=== PATIENT | male | born 1965 | race Hispanic/Latino ===

== ENCOUNTER 2017-10-14 19:43 | Inpatient (IN) | payer BC ==
--- NOTE | 2017-10-14 20:18 | ED PDOC ---
Arrival/HPI - General Chief Complaint: Cough, Cold, Congestion - History of Present Illness Narrative History of Present Illness (Text): 10/14/17 20:14 Pt is a 52 yo M with PMH of hypothyroidism and hyperlipidemia presents to Emergency department due to 4 week history of non-productive cough and congestion. Pt was initially seen by Dr. Lisa 3-4 weeks ago and was diagnosed with bronchitis. Patient was prescribed cough medications only at that time. Symptoms did not resolve. He then went to his regular PMD, Dr. Chavarria, about 2 weeks ago. Patient had been given levaquin, medrol dose pack, and supportive care. However, patient symptoms still did not resolve. So he was instructed by Dr. Chavarria to go to Emergency department to be admitted. Pt currently complains of cough, rib pain that subsequently developed from cough, nasal congestion, and wheezing with deep inspiration. Pt denied chest pain, nausea, vomiting, diarrhea, abdominal pain, fever, chills, headache, or dizziness. PMD: Aura Past Medical History - Cardiac Hx Cardiac Disorders: Yes - Pulmonary Hx Respiratory Disorders: No - Neurological Hx Neurological Disorder: No - HEENT Hx HEENT Disorder: No - Renal Hx Renal Disorder: No - Endocrine/Metabolic Hx Endocrine Disorders: Yes Hx Hypothyroidism: Yes - Hematological/Oncological Hx Blood Disorders: No - Integumentary Hx Dermatological Disorder: No - Musculoskeletal/Rheumatological Hx Musculoskeletal Disorders: Yes Hx Back Pain: Yes - Gastrointestinal Hx Gastrointestinal Disorders: No - Genitourinary/Gynecological Hx Genitourinary Disorders: No - Psychiatric Hx Psychophysiologic Disorder: No Hx Substance Use: No - Surgical History Hx Orthopedic Surgery: Yes (BACK, R FOOT) Other/Comment: NASAL R/T SINUS - Anesthesia Hx Anesthesia: Yes Family/Social History Family/Social History: No Known Family HX Smoking Status: Former Smoker Hx Alcohol Use: No Hx Substance Use: No Allergies/Home Meds Allergies/Adverse Reactions: Allergies No Known Allergies Allergy (Verified 10/14/17 19:57) Home Medications: Home Meds Medication Instructions Recorded Confirmed Unobtainable 10/14/17 10/14/17 Review of Systems - Review of Systems Constitutional: Normal Eyes: Normal ENT: Rhinorrhea, Sinus Congestion. absent: Sore Throat Respiratory: SOB, Cough (dry) Cardiovascular: Normal Gastrointestinal: Normal Genitourinary Male: Normal Musculoskeletal: Normal Skin: Normal Neurological: Normal Endocrine: Normal Hemo/Lymphatic: Normal Psychiatric: Normal Physical Exam Vital Signs Temp Pulse Resp BP Pulse Ox 10/14/17 21:53 98.0 F 77 19 150/92 H 98 10/14/17 19:58 98.2 F 71 16 157/96 H 95 Temperature: Afebrile Blood Pressure: Normal Pulse: Regular Respiratory Rate: Normal Appearance: Positive for: Well-Appearing Pain Distress: None Mental Status: Positive for: Alert and Oriented X 3 - Systems Exam Head: Present: Atraumatic, Normocephalic Extroacular Muscles: Present: EOMI Mouth: Present: Moist Mucous Membranes Neck: Present: Normal Range of Motion Respiratory/Chest: Present: Rhonchi (b/l bases). No: Respiratory Distress, Accessory Muscle Use, Wheezes, Rales Cardiovascular: Present: Regular Rate and Rhythm, Normal S1, S2. No: Murmurs, Rub, Gallop Abdomen: No: Tenderness, Distention, Peritoneal Signs, Rebound, Guarding Upper Extremity: Present: Normal Inspection Lower Extremity: Present: Normal Inspection Neurological: Present: GCS=15 Skin: Present: Warm, Dry, Normal Color Psychiatric: Present: Alert, Oriented x 3 Medical Decision Making ED Course and Treatment: 10/14/17 20:20 Assessment: 52 yo M with PMH of hypothyroidism and hyperlipidemia presents to emergency department for 4 week history of bronchitis. Plan: - CBC - CMP, Mg - BNP - Cardiac enzymes - Coags - EKG - Chest X-ray - Urinalysis - Flu swab - Duoneb - Solumedrol 10/14/17 21:04 EKG showed NSR, moderate voltage criteria for LVH. 10/14/17 22:00 Chest X-ray as interpreted by myself shows no active disease. Labs unremarkable. Spoke to Dr. Chavarria, she accepts patient under her service. Dr. Chavarria requests CT of chest. - Lab Interpretations Lab Results: 10/14/17 20:58 10/14/17 20:58 Lab Results 10/14/17 20:58: Influenza Typ A,B (EIA) Negative for flu a/b 10/14/17 20:58: Sodium 139, Potassium 3.8, Chloride 103, Carbon Dioxide 26, Anion Gap 14, BUN 21, Creatinine 0.7 L, Est GFR ( Amer) > 60, Est GFR ( Non-Af Amer) > 60, Random Glucose 113 H, Calcium 9.3, Magnesium 2.0, Total Bilirubin 0.7, AST 45, ALT 56, Alkaline Phosphatase 89, Lactate Dehydrogenase 540, Total Creatine Kinase 253 H, CK-MB (CK-2) Pending, CK-MB (CK-2) % Pending, Troponin I < 0.01, NT-Pro-B Natriuret Pep 44.9, Total Protein 7.4, Albumin 4.0, Globulin 3.5, Albumin/Globulin Ratio 1.1 10/14/17 20:58: PT 10.3, INR 0.91 L, APTT 26.8 10/14/17 20:58: WBC 10.5, RBC 4.59, Hgb 13.6 L, Hct 41.7 L, MCV 90.8, MCH 29.6, MCHC 32.6, RDW 13.4, Plt Count 204, MPV 9.4, Gran % 65.2, Lymph % (Auto) 24.8, Hill % (Auto) 9.6 H, Eos % (Auto) 0.2 L, Baso % (Auto) 0.2, Gran # 6.88 H, Lymph # (Auto) 2.6, Hill # (Auto) 1.0 H, Eos # (Auto) 0.0, Baso # (Auto) 0.02 - RAD Interpretation Radiology Orders: 10/14/17 20:26 CHEST PORTABLE [RAD] Stat 10/14/17 22:01 CHEST W/O CONTRAST [CT] Stat - Medication Orders Current Medication Orders: Discontinued Medications Albuterol/Ipratropium (Duoneb 3 Mg/0.5 Mg (3 Ml) Ud) 3 ml IH STAT STA Stop: 10/14/17 20:28 Last Admin: 10/14/17 21:49 Dose: 3 ml Methylprednisolone (Solu-Medrol) 125 mg IVP STAT STA Stop: 10/14/17 20:28 Last Admin: 10/14/17 21:50 Dose: 125 mg IVP Administration Document 10/14/17 21:50 [email or web address] (Rec: 10/14/17 21:50 [id number] Charges for Administration # of IVP Administrations 1 Disposition/Present on Arrival - Present on Arrival Any Indicators Present on Arrival: No History of DVT/PE: No History of Uncontrolled Diabetes: No Urinary Catheter: No History of Decub. Ulcer: No History Surgical Site Infection Following: None - Disposition Have Diagnosis and Disposition been Completed?: Yes Diagnosis: Bronchitis Disposition: HOSPITALIZED Disposition Time: 22:04 Patient Plan: Admission Condition: STABLE Referrals: Joey Chavarria MD [Primary Care Provider] - Follow up with primary Forms: [employer] (Urdu)
[2017-10-14] MEDS ORDERED: Albuterol-Ipratrop 3 mg / 0.5 (3 ml) UD IH STA (20:27)
[2017-10-14 21:23] LABS: BASO # 0.02 K/mm3 (0.0-2.0); BASO % 0.2 % (0.0-3.0); EOS % 0.2 % (1.5-5.0); GRAN # 6.88 (1.4-6.5); GRAN % 65.2 % (50.0-68.0); HEMOGLOBIN 13.6 g/dL (14.0-18.0); LYMPH # 2.6 (1.2-3.4); LYMPH % 24.8 % (22.0-35.0); MEAN CELL VOLUME 90.8 fl (80.0-105.0); MEAN CORPUSCULAR HEMOGLOBIN 29.6 pg (25.0-35.0); MEAN CORPUSCULAR HGB CONC 32.6 g/dl (31.0-37.0); MEAN PLATELET VOLUME 9.4 fl (7.0-11.0); MONO % 9.6 % (1.0-6.0); RBC 4.59 10^6/uL (3.5-6.1); RED CELL DISTRIBUTION WIDTH 13.4 % (11.5-14.5); WHITE BLOOD COUNT 10.5 10^3/ul (4.5-11.0)
[2017-10-14 21:42] LABS: INR 0.91 (0.93-1.08); PARTIAL THROMBOPLASTIN TIME 26.8 Seconds (25.1-36.5); PROTHROMBIN TIME 10.3 SECONDS (9.4-12.5)
[2017-10-14 21:45] LABS: ALB/GLOB RATIO 1.1 (1.1-1.8); ALT/SGPT 56 U/L (7-56); AST/SGOT 45 U/L (17-59); BLOOD UREA NITROGEN 21 mg/dL (7-21); CALCIUM 9.3 mg/dL (8.4-10.5); GFR AFRICAN-AMERICAN > 60; GFR NON-AFRICAN AMERICAN > 60
[2017-10-14 21:56] LABS: B-TYPE NATRIURETIC PEPTIDE 44.9 pg/mL (0-450); TROPONIN I < 0.01 ng/mL
[2017-10-14 22:04] LABS: CK MB% 2.3 % (2.5-3.0); CK-MB 5.9 ng/mL (0.0-3.6)
[2017-10-14] MEDS ORDERED: Albuterol-Ipratrop 3 mg / 0.5 (3 ml) UD IH PRN (22:10)
--- NOTE | 2017-10-15 00:18 | CT ---
EXAM: CT Chest Without Intravenous Contrast CLINICAL HISTORY: 52 years old, male; Signs and symptoms; Cough and shortness of breath; Symptoms not specified; Additional info: Cough R/O pna TECHNIQUE: Axial computed tomography images of the chest without intravenous contrast. All CT scans at this facility use one or more dose reduction techniques, viz.: automated exposure control; ma/kV adjustment per patient size (including targeted exams where dose is matched to indication; i.e. head); or iterative reconstruction technique. COMPARISON: DX - CHEST PORTABLE 2017-10-14 20:49 FINDINGS: Limitations: Lack of intravenous contrast. Lungs: Mild atelectasis/scarring. Few scattered minimal groundglass opacities. No consolidation. 0.3 cm RIGHT upper lobe nodule. Pleural space: No pneumothorax. No significant effusion. Heart: No cardiomegaly. No significant pericardial effusion. Bones/joints: Healing fracture left fifth rib. Early degenerative changes of spine. Soft tissues: Unremarkable. Vasculature: Minimal atherosclerotic disease. No aneurysm. Lymph nodes: No pathologically enlarged lymph nodes. Liver: Fatty infiltration. IMPRESSION: 1. Groundglass opacities, nonspecific. Consider inflammatory or infectious etiologies. 2. Pulmonary nodules. For low-risk patients, no follow-up is necessary. For high-risk patients (smoking history or other known risk factors) an optional CT at 12 months could be performed. 3. Incidental/non-acute findings are described above.
[2017-10-15] MEDS: Albuterol-Ipratrop 3 mg / 0.5 (3 ml) UD IH SCH ×4 (02:44→20:57)
[2017-10-15 03:17] LABS: PH,URINE 6.5 (4.7-8.0); URINE BILIRUBIN NEGATIVE (NEGATIVE); URINE BLOOD NEGATIVE (NEGATIVE); URINE GLUCOSE (UA) NEGATIVE (NEGATIVE); URINE LEUKOCYTE ESTERASE NEGATIVE Leu/uL (NEGATIVE); URINE NITRATE NEGATIVE (NEGATIVE); URINE PROTEIN NEGATIVE mg/dL (<30 mg/dL); URINE UROBILINOGEN 0.2 E.U./dL (<1 E.U./dL)
[2017-10-15 03:39] LABS: URINE APPEARANCE CLEAR (CLEAR); URINE COLOR YELLOW (YELLOW)
[2017-10-15] MEDS: Pantoprazole 40 mg EC Tab PO SCH (06:30)
[2017-10-15] MEDS: MethylPREDNISolone 40 mg Vial IV SCH ×3 (06:30→21:28)
--- NOTE | 2017-10-15 06:54 | HP ---
DATE OF EXAM: HISTORY OF PRESENT ILLNESS: Patient is 52 years old, who has been in office intermittently for last 2 weeks. Patient states he has been coughing for almost a month, but got worse in the last 2 weeks. He was given a course of Levaquin with Medrol Dosepak. He was also given Ventolin HFA and Advair with no significant relief, still complains of cough, congestion, shortness of breath. Initially had fever, but fever has subsided. Now complains of increasing shortness of breath, unable to take deep breath, unable to lie flat. No history of nausea or vomiting. No recent travel abroad. PAST MEDICAL HISTORY: Significant for: 1. Hypothyroidism. 2. History of hypertension. 3. Hyperlipidemia. 4. Morbid obesity. ALLERGIES: HE IS NOT ALLERGIC TO ANY MEDICATIONS. MEDICATIONS: At home, he has just finished a course of Levaquin. He is on Medrol Dosepak and he has been taking Phenergan with Codeine. SOCIAL HISTORY: He is , lives with his . He has one grownup daughter. Denies smoking, drinking, or alcohol use. PHYSICAL EXAMINATION: GENERAL: He is awake and alert. He was constantly coughing while he was in office with harsh wheezing. VITAL SIGNS: He is afebrile, pulse 77, respirations 19, blood pressure 115/92. LUNGS: Bilateral expiratory rhonchi, diffuse. HEART: S1 and S2 audible. ABDOMEN: Soft, obese, and nontender. No rebound. No guarding. NEUROLOGIC: He is awake, alert, oriented, communicative. LABORATORY DATA: WBC 10.5, hemoglobin 13.6, hematocrit 41.7, platelets 204, PT 10.3, INR 0.91. Chemistry, sodium 139, potassium 3.8, chloride 103, CO2 of 26, BUN 21, creatinine 0.7, blood sugar 113. LFTs are within normal limits. CPK 250, CK-MB 5.9. Troponin is 0.01. BNP is 44.9. Flu test is negative. ASSESSMENT AND PLAN: 1. Asthma exacerbation. 2. Asthmatic bronchitis. 3. Severe bronchospasm. 4. Exertional dyspnea. 5. Hypertension. 6 Morbid obesity. 7. Hyperlipidemia. PLAN: Patient has been started on IV steroid, IV antibiotics, breathing nebulizer treatment. We will get CT scan of the chest and we will reevaluate the patient. Joey Chavarria MD [facility] # [id number]
--- NOTE | 2017-10-15 08:47 | RAD ---
HISTORY: sob COMPARISON: No prior. FINDINGS: LUNGS: No active pulmonary disease. PLEURA: No significant pleural effusion identified, no pneumothorax apparent. CARDIOVASCULAR: Normal. OSSEOUS STRUCTURES: No significant abnormalities. VISUALIZED UPPER ABDOMEN: Normal. OTHER FINDINGS: None. IMPRESSION: No acute cardiopulmonary disease appreciated.
[2017-10-15] MEDS: Azithromycin 500MG/NS 250ml 500 MG/250 ML BAG IVPB SCH (09:32)
--- NOTE | 2017-10-15 09:42 | CARD ---
APPROVED REPORT EKG Measurement Heart [id number] <Conclusion> Normal sinus rhythm Moderate voltage criteria for LVH
[2017-10-15] MEDS: cefTRIAXone 1 gm 1 GM/100 ML BAG IVPB SCH (10:23)
--- NOTE | 2017-10-15 23:55 | PN ---
DATE: SUBJECTIVE: Patient is a 52-year-old, seen and examined, seems to be doing a little bit better. Less cough. No nausea or vomiting. No diarrhea. PHYSICAL EXAMINATION VITAL SIGNS: He is afebrile, pulse 80, respirations 20, blood pressure 129/86. LUNGS: Bilateral soft crackles, diffuse, upper and lower lung region. HEART: S1 and S2 audible. ABDOMEN: Soft, obese, and nontender. No rebound. No guarding. NEUROLOGIC: He is awake, alert, oriented, communicative, ambulatory. LABORATORY DATA: WBC is 10.5, hemoglobin 13, hematocrit 41, platelets 204. Chemistry, blood sugar is 113. CPK 253. Urinalysis is unremarkable. Flu test is negative. EKG shows normal sinus rhythm, moderate voltage criteria for LVH. ASSESSMENT: 1. Asthmatic bronchitis. 2. Severe bronchospasm. 3. Failed outpatient treatment. 5. Morbid obesity. 6. Hypothyroidism. PLAN: Currently patient is on azithromycin, methyl prednisone and Rocephin; we will continue that. Continue nebulizer treatment. Continue on GI prophylaxis. Encourage ambulation. We will follow up patient in a.m. Joey Chavarria MD
[2017-10-16] MEDS: Albuterol-Ipratrop 3 mg / 0.5 (3 ml) UD IH SCH ×4 (03:10→20:22)
[2017-10-16] MEDS: MethylPREDNISolone 40 mg Vial IV SCH ×3 (06:22→21:13)
[2017-10-16] MEDS: Pantoprazole 40 mg EC Tab PO SCH (06:22)
[2017-10-16] MEDS: Azithromycin 500MG/NS 250ml 500 MG/250 ML BAG IVPB SCH (09:41)
[2017-10-16] MEDS: cefTRIAXone 1 gm 1 GM/100 ML BAG IVPB SCH (09:41)
[2017-10-17] MEDS: Albuterol-Ipratrop 3 mg / 0.5 (3 ml) UD IH SCH ×2 (02:25→07:35)
[2017-10-17] MEDS: Pantoprazole 40 mg EC Tab PO SCH ×2 (05:22→08:01)
[2017-10-17 08:13] VITALS: BP 137/85; PULSE 79; RESP 18; TEMP 98; O2SAT 97
--- NOTE | 2017-10-17 08:55 | PN ---
DATE: 10/16/2017 SUBJECTIVE: The patient is 60 years old, seen and examined. He states he feels better. Less cough. Less shortness of breath and wheezing. PHYSICAL EXAMINATION: VITAL SIGNS: He is afebrile, pulse 66, respirations 16, blood pressure 121/76. LUNGS: Bilateral expiratory rhonchi. HEART: S1 and S2 audible. ABDOMEN: Soft, obese, nontender. No rebound. No guarding. NEUROLOGIC: The patient is awake and alert, able to communicate, ambulatory. ASSESSMENT: 1. Failed outpatient treatment. 2. Asthmatic bronchitis. 3. Viral syndrome. 4. Bronchospasm. 5. Asthma exacerbation. 6. Hypothyroidism. PLAN: We will continue the patient on current medication. He is on nebulizer treatment, Protonix, Rocephin, Singulair. I will cut down his steroid to 40 q. 12. I will reevaluate the patient in the a.m. If he remain stable, discharge plan in the a.m. Joey Chavarria MD
[2017-10-17] MEDS: MethylPREDNISolone 40 mg Vial IV SCH (10:05)
[2017-10-17] MEDS: cefTRIAXone 1 gm 1 GM/100 ML BAG IVPB SCH (10:05)
--- NOTE | 2017-10-18 11:37 | DS ---
HISTORY OF PRESENT ILLNESS: The patient is 52 years old who has been coughing 2 to 3 weeks prior to coming to the hospital. He was given 2 rounds of antibiotics. He was given Medrol Dosepak. He was using nebulizer treatment as outpatient. The patient states his cough and congestion is getting worse. He is unable to walk small distance. He was getting increasingly short of breath and was having audible wheezing, so he was referred to Emergency Room for IV antibiotic and further treatment. The patient was given IV steroid, IV antibiotic with nebulizer treatment with significant relief. Today, when he was examined, he was doing well. No cough, no congestion. No shortness of breath. PHYSICAL EXAMINATION VITAL SIGNS: He was afebrile, pulse 79, respirations 18, blood pressure 137/85. LUNGS: Bilateral fair airflow. Occasional expiratory rhonchi. HEART: S1 and S2 audible. ABDOMEN: Soft, obese, nontender. No rebound, no guarding. NEUROLOGIC: The patient is awake and alert, oriented, ambulatory and communicative. ASSESSMENT AND PLAN 1. Asthmatic bronchitis, failed outpatient treatment. 2. Viral syndrome, resolved. 3. Morbid obesity. 4. Hypothyroidism. PLAN: The patient is being discharged home. He has Medrol Dosepak at home left over from his outpatient treatment. He has nebulizer treatment. He also has antibiotic, he will finish up both and I will follow up in the office in a week. Joey Chavarria MD
== END 2017-10-17 13:18 | disposition home or self-care (01) | DRG 203 ==
LOC: ED 19:43 → ERH 22:00 → 5RNO 10-15 04:26 → OBSVTOIN 10-15 18:03
PROVIDERS: ADMIT Internal Medicine; ATTEND Internal Medicine
DX: J45.901 Unspecified asthma with (acute) exacerbation (principal); E66.01 Morbid (severe) obesity due to excess calories; B34.9 Viral infection, unspecified; E03.9 Hypothyroidism, unspecified; E78.5 Hyperlipidemia, unspecified; I10 Essential (primary) hypertension; Z68.36 Body mass index [BMI] 36.0-36.9, adult